=== PATIENT | female | born 1965 | race African-American/Black ===

== ENCOUNTER 2016-08-07 22:59 | Inpatient (IN) | payer SELFPAY ==
[~2016-08-07] VITALS: Ht 175.3 cm; Wt 91.6 kg
[2016-08-08] VITALS (7 sets, daily range): BP systolic 130–188; BP diastolic 81–103
[2016-08-08 04:28] LABS: BASOPHILS % 0.5 % (0.0-2.0); EOSINOPHILS % 1.6 % (0.0-5.0); HEMATOCRIT. 36.7 % (36.0-48.0); HEMOGLOBIN. 11.9 g/dL (12.0-16.0); LYMPHOCYTES % 18.7 % (20.0-50.0); MEAN CORPUSCULAR HEMOGLOBIN 25.9 pg (28.0-32.0); MEAN CORPUSCULAR VOLUME 79.9 fL (81.0-99.0); MEAN PLATELET VOLUME 9.4 fl (7.4-10.4); MONOCYTES % 7.3 % (2.0-8.0); NEUTROPHILS % 71.9 % (40.0-76.0); PLATELET 156 x1000/uL (130-400); RED CELL DISTRIBUTION WIDTH 18.5 % (11.6-14.6)
[2016-08-08 04:44] LABS: AMMONIA 13 uMol/L (<32)
[2016-08-08 04:48] LABS: CARBON DIOXIDE 27 mEq/L (21-32); CHLORIDE 104 mEq/L (98-107); ETHANOL BLOOD < 10 mg/dL; TROPONIN I < 0.02 ng/mL (0.00-0.04)
[2016-08-08 04:59] LABS: CLARITY URINE CLEAR (CLEAR); COLOR URINE YELLOW (YELLOW); GLUCOSE URINE NEGATIVE (NEGATIVE); KETONES URINE 1+ (NEGATIVE); LEUKOCYTE ESTERASE URINE TRACE (NEGATIVE); NITRITE URINE NEGATIVE (NEGATIVE); OCCULT BLOOD URINE NEGATIVE (NEGATIVE); PROTEIN URINE NEGATIVE (NEGATIVE); SPECIFIC GRAVITY URINE 1.023 (1.005-1.030); UROBILINOGEN URINE 0.2 E.U./dL (0.2-1.0)
[2016-08-08 05:12] LABS: *AMPHETAMINES SCREEN URINE NEGATIVE (NEGATIVE); *BARBITURATES SCREEN URINE NEGATIVE (NEGATIVE); *BENZODIAZEPINES SCREEN URINE NEGATIVE (NEGATIVE); *COCAINE SCREEN URINE NEGATIVE (NEGATIVE); CANNABINOID URINE SCREEN PRESUMTIVE POSITIVE (NEGATIVE); METHADONE URINE SCREEN NEGATIVE (NEGATIVE); OPIATES URINE SCREEN NEGATIVE (NEGATIVE); PHENCYCLIDINE URINE SCREEN NEGATIVE (NEGATIVE)
[2016-08-08] MEDS ORDERED: ASPIRIN 325MG EC TABLET PO ONE (06:00)
[2016-08-08] MEDS ORDERED: ASPI-1159 PO (09:05)
[2016-08-08] MEDS ORDERED: AMLODIPINE 5MG TABLET PO SCH (09:45)
[2016-08-08] MEDS ORDERED: ONDANSETRON HCL 4MG/2ML VIAL IV PRN (11:45)
[2016-08-08] MEDS ORDERED: MAGNESIUM/ALUMINUM HYDROXIDE/SIMETHICONE 30ML UDC PO PRN (11:45)
[2016-08-08] MEDS ORDERED: ACETAMINOPHEN 325MG TABLET PO PRN (11:45)
[2016-08-08] MEDS ORDERED: GUAIFENESIN 200MG/10ML SUGAR FREE UDC PO PRN (11:45)
[2016-08-08] MEDS ORDERED: NA PHOS,M-B/NA PHOS,DI-BA ENEMA 118ML PR PRN (11:45)
[2016-08-08] MEDS ORDERED: IPRATROPIUM/ALBUTEROL 0.5-3(2.5)MG/3ML NEB INH PRN (11:45)
[2016-08-08] MEDS ORDERED: KETOROLAC 30MG/ML VIAL IV PRN (11:45)
[2016-08-08] MEDS ORDERED: CLONIDINE 0.1MG TABLET PO PRN (11:45)
[2016-08-08] MEDS ORDERED: LORAZEPAM 2MG/ML CPJ IV PRN (11:45)
[2016-08-08] MEDS ORDERED: DOCUSATE SODIUM 100MG CAPSULE PO PRN (11:45)
[2016-08-08] MEDS ORDERED: ZOLPIDEM TARTRATE 5MG TABLET PO PRN (11:45)
[2016-08-08] MEDS ORDERED: DIPHENHYDRAMINE 50MG/ML VIAL IV PRN (11:45)
[2016-08-08] MEDS ORDERED: NITROGLYCERIN 0.4MG TABLET SL SL PRN (11:45)
[2016-08-08] MEDS ORDERED: POTASSIUM CHLORIDE 20MEQ TABLET SR PO SCH (12:45)
[2016-08-08] MEDS ORDERED: LEVOFLOXACIN 500MG PREMIX 100 ML IV SCH (13:00)
[2016-08-08] MEDS: ENOXAPARIN 40MG/0.4ML SYR SUBCUT SCH (13:44)
[2016-08-08 17:07] LABS: CREATINE KINASE 414 IU/L (26-192); CREATINE KINASE MB FRACTION 3.7 ng/mL (0.5-3.6); TROPONIN I < 0.02 ng/mL (0.00-0.04)
[2016-08-08] MEDS: LISINOPRIL 20MG TABLET PO SCH (20:26)
[2016-08-09] VITALS: BP 118/82
[2016-08-09 01:26] LABS: CREATINE KINASE 349 IU/L (26-192); CREATINE KINASE MB FRACTION 3.4 ng/mL (0.5-3.6); TROPONIN I < 0.02 ng/mL (0.00-0.04)
[2016-08-09 08:00] VITALS: BP 138/91
[2016-08-09] MEDS: LISINOPRIL 20MG TABLET PO SCH (08:39)
[2016-08-09] MEDS: ENOXAPARIN 40MG/0.4ML SYR SUBCUT SCH (08:59)
[2016-08-09] MEDS ORDERED: ASPIRIN 325MG EC TABLET PO SCH (09:00)
[2016-08-09 12:00] VITALS: BP_SYST 131; BP_SYST 132; BP_DIAS 79; BP_DIAS 82
== END 2016-08-09 12:29 | disposition home or self-care (01) | DRG 861 ==
LOC: ER 23:20 → 8WST 08-08 06:21 → ENRESERV 08-08 07:04
PROVIDERS: ADMIT Internal Medicine; ATTEND Internal Medicine
DX: R41.3 Other amnesia (principal); N39.0 Urinary tract infection, site not specified; I10 Essential (primary) hypertension; F12.10 Cannabis abuse, uncomplicated; E87.6 Hypokalemia; E66.9 Obesity, unspecified; Z68.29 Body mass index [BMI] 29.0-29.9, adult; Z71.51 Drug abuse counseling and surveillance of drug abuser
CPT/HCPCS: 36415; 70450; 70551; 71010; 80053; 80305; 81001; 82140; 82550; 82553; 83880; 84443; 84484; 85025; 93005; 96365; 96372; 99285; G0482; J1650; J1956; J7040